=== PATIENT | female | born 1940 | race Two or more races ===

== ENCOUNTER 2019-02-20 07:49 | Outpatient (CLI) | payer OTHER | END 2019-02-20 08:13 | disposition home or self-care (01) | LOC: RAD 07:49 | DX: D64.89 Other specified anemias (principal); E88.89 Other specified metabolic disorders; D68.8 Other specified coagulation defects; N39.0 Urinary tract infection, site not specified; Z22.322 Carrier or suspected carrier of Methicillin resistant Staphylococcus aureus; Z76.89 Persons encountering health services in other specified circumstances; I49.8 Other specified cardiac arrhythmias ==

== ENCOUNTER 2019-02-20 10:21 | Inpatient (IN) | payer OTHER ==
[~2019-02-20] VITALS: Ht 160 cm; Wt 93.0 kg
[2019-02-27] MEDS ORDERED: FENOFIBRATE160 MG PO (11:58)
[2019-02-27] MEDS ORDERED: METFORMIN HCL1000 MG PO (11:59)
[2019-02-27] MEDS ORDERED: LEVOTHYROXINE25 MCG PO (11:59)
[2019-02-27] MEDS ORDERED: COZAAR100 MG PO (11:59)
[2019-02-27] MEDS ORDERED: GLUCOTROL10 MG PO (11:59)
[2019-02-27] MEDS ORDERED: SIMVASTATIN20 MG PO (12:00)
[2019-02-27] MEDS ORDERED: TOPROL XL50 MG PO (12:00)
[2019-03-19] MEDS ORDERED: VITAMIN D350000 UNIT PO (16:04)
[2019-03-19] MEDS ORDERED: ASPIR 8181 MG PO (16:04)
[2019-03-19] MEDS ORDERED: CALCIUM500 M1 (16:05)
[2019-03-19] MEDS ORDERED: MULTI VITAMIN1 EACH PO (16:05)
== END 2019-03-20 14:00 | DRG 470 ==
LOC: SURG 03-10 10:30 → O/R 03-17 06:00 → SURG 03-17 07:00
PROVIDERS: ADMIT Orthopaedic Surgery
PROC: 0SR902Z Replacement of Right Hip Joint with Metal on Polyethylene Synthetic Substitute, Open Approach (ICD-10-PCS; principal; 2019-03-17 07:00)
DX: M16.11 Unilateral primary osteoarthritis, right hip (principal); D62 Acute posthemorrhagic anemia; Z96.641 Presence of right artificial hip joint

== ENCOUNTER 2019-03-04 14:28 | Outpatient (CLI) | payer OTHER ==
[~2019-03-04 14:28] MED LIST: COZAAR100 MG PO; FENOFIBRATE160 MG PO; GLUCOTROL10 MG PO; LEVOTHYROXINE25 MCG PO; METFORMIN HCL1000 MG PO; SIMVASTATIN20 MG PO; TOPROL XL50 MG PO
== END 2019-03-04 14:31 | disposition home or self-care (01) ==
LOC: LAB 14:28
DX: N39.0 Urinary tract infection, site not specified (principal)

== ENCOUNTER 2019-03-11 14:03 | Outpatient (CLI) | payer OTHER | END 2019-03-11 14:05 | disposition home or self-care (01) | LOC: RAD 14:03 | DX: M16.11 Unilateral primary osteoarthritis, right hip (principal) ==

== ENCOUNTER 2019-04-29 12:00 | Outpatient (CLI) | payer OTHER ==
[~2019-04-29 12:00] MED LIST changes: +ASPIR 8181 MG PO; +CALCIUM500 M1; +MULTI VITAMIN1 EACH PO; +VITAMIN D350000 UNIT PO
== END 2019-04-29 12:02 | disposition home or self-care (01) ==
LOC: RAD 12:00
DX: M25.551 Pain in right hip (principal)

== ENCOUNTER 2019-05-25 15:41 | Outpatient (CLI) | payer OTHER | END 2019-05-25 16:30 | disposition home or self-care (01) | LOC: NUCLEAR 15:41 | DX: I87.2 Venous insufficiency (chronic) (peripheral) (principal); Z96.641 Presence of right artificial hip joint ==

== ENCOUNTER → 2019-05-25 17:08 | Outpatient (CLI) | payer OTHER | END | disposition home or self-care (01) | LOC: RAD 17:08 | DX: Z96.641 Presence of right artificial hip joint (principal) ==

== ENCOUNTER 2019-08-01 08:32 | Outpatient (CLI) | payer OTHER | END 2019-08-01 08:39 | disposition home or self-care (01) | LOC: LAB 08:32 | DX: E21.2 Other hyperparathyroidism (principal); E55.9 Vitamin D deficiency, unspecified; M85.88 Other specified disorders of bone density and structure, other site; E88.89 Other specified metabolic disorders; M81.8 Other osteoporosis without current pathological fracture; E56.1 Deficiency of vitamin K ==